=== PATIENT | male | born 1940 | race Caucasian/White ===

== ENCOUNTER 2019-03-30 11:45 | Outpatient (CLI) | payer MEDICARE, BC | END 2019-03-30 23:59 | disposition home or self-care (01) | LOC: RAD 11:45 | PROVIDERS: ATTEND Otolaryngology | DX: R13.12 Dysphagia, oropharyngeal phase (principal); R49.0 Dysphonia; Z85.89 Personal history of malignant neoplasm of other organs and systems | CPT/HCPCS: 74230 ==